=== PATIENT | male | born 1940 | race Caucasian/White ===

== ENCOUNTER 2019-06-26 14:05 | Inpatient (IN) ==
[2019-06-26 14:50] LABS: BASO# 0.01 X1000 (0.0-0.2); BASO% 0.1 % (0.0-0.8); HEMATOCRIT 54.3 % (42.0-52.0); HEMOGLOBIN 17.8 g/dL (14.0-18.0); IMM GRAN# 0.02 X1000 (0.0-0.04); IMM GRAN% 0.2 % (0.0-0.5); LYMPH# 1.13 X1000 (1.2-3.4); LYMPH% 10.3 % (20.5-51.1); MCH 29.3 PG (27-31); MCHC 32.8 g/dL (33-37); MCV 89.5 FL (81-99); MONO# 0.71 X1000 (0.11-0.59); MONO% 6.5 % (1.7-9.3); MPV 10.5 FL (7.4-10.4); NEUT# 9.05 X1000 (1.4-6.5); NEUT% 82.9 % (42.2-75.2); PLT 149 X1000 (130-400); RBC 6.07 XMIL (4.7-6.1); WBC 10.92 X1000 (4.8-10.8)
--- NOTE | 2019-06-26 14:55 | Diag Imaging Result Doc PS360 ---
EXAM: CHEST-1 VIEW - 06/26/2019 HISTORY: dyspnea, hypoxia TECHNIQUE: Portable chest one view COMPARISON: None. FINDINGS: Heart size appears upper normal. There are ill-defined lower lung infiltrates and/or scarring. There is no substantial pleural effusion or pneumothorax identified. IMPRESSION: Ill-defined lower lung infiltrates and/or scarring. Electronically signed by Norman Ann 06/26/2019 2:53 PM
[2019-06-26 15:02] LABS: INR 1.05; PROTIME 13.8 Seconds (11.0-16.0)
[2019-06-26 15:03] LABS: PTT 34.3 Seconds (22.3-41.8)
[2019-06-26 15:18] LABS: ALB/GLOB RATIO 1.2; ALBUMIN 3.8 g/dL (3.5-5.0); CALCIUM 9.2 mg/dL (8.8-10.2); CREATININE 1.8 mg/dL (0.7-1.2); MAGNESIUM 2.1 mg/dL (1.5-2.7); POTASSIUM 5.1 mmol/L (3.5-5.1); TOTAL BILIRUBIN 0.61 mg/dL (0.20-1.00); TOTAL PROTEIN 6.9 g/dL (6.3-8.3)
[2019-06-26] MEDS ORDERED: LEVAQUIN PO ONE (15:24)
[2019-06-26] MEDS ORDERED: ASPIRIN PO ONE ×2 (15:30→15:55)
[2019-06-26 16:08] LABS: ALLEN TEST YES; BE -5.6 mmoll (-3.0-3.0); BLOOD TYPE ARTERIAL; HCO3-(ACT) 20.4 mmoll (20.0-26.0); MODALITY CANNULA; O2(CT) 23.3 mL/dL (15.0-23.0); O2HB 92.2 % (95.0-99.0); PCO2(98.6) 33 mmHg (35-45); PO2(98.6) 60 mmHg (60-100); SAMPLE BLOOD; SAO2 94.8 % (95.0-100.0); pH(98.6) 7.36 (7.35-7.45)
[2019-06-26] MEDS ORDERED: HEPARIN IV ONE (16:24)
[2019-06-26 16:41] LABS: URINE SOURCE CLEAN CATCH
--- NOTE | 2019-06-26 16:43 | CARDIOLOGY CONSULTATION ---
DATE: 06/26/2019 CHIEF COMPLAINT: Chest pain, shortness of breath. HISTORY OF PRESENT ILLNESS: Mr. Lama is a 78-year-old male with a history of hypertension, who presents for evaluation of shortness of breath and chest pain that began yesterday evening around 12:30. It was associated with some chest discomfort that persisted for several hours. He had associated nausea and vomiting as well. He was administered 4 baby aspirin here. He is currently somewhat short of breath but no longer no longer has any pain complaints. PAST MEDICAL HISTORY: Significant for hypertension. SOCIAL HISTORY: He does not smoke. He quit many years ago. He is . His son is present at bedside. FAMILY HISTORY: Significant for hypertension. REVIEW OF SYSTEMS: A 10 system review of systems is negative except for those mentioned in HPI. PHYSICAL EXAMINATION: Temperature not taken. Pulse rate 116, respiratory rate 31, blood pressure 108/86.General: He is in no acute distress. HEENT: Oropharynx is moist. Poor dentition. [place] conjunctivae. White sclerae. Neck: Shows no obvious thyromegaly or thyroid tenderness. Cardiovascular: He sounds to be in a regular rate and rhythm. He has no murmurs. He has no S3. He has no lower extremity edema. Chest: Bilateral basilar rales. No increased work of breathing. Abdomen: Soft, nontender, nondistended. He has no obvious organomegaly. Skin: Warm and dry throughout without any rashes. Neurological: He is moving all extremities well. He has no lateralizing deficits. PERTINENT DATA: His EKG shows sinus rhythm. He has a nonspecific intraventricular conduction delay that appears to be more left bundle type. His EKG shows ill-defined lower lung infiltrates and/or scarring. His lab data shows a white count of 10.9, hematocrit 54, platelet count 149,000. His sodium is 136, potassium 5.1, BUN 22, creatinine is 1.8. His initial troponin is 347 with a proBNP of 6720, his lactate is 3.7. ASSESSMENT: Mr. Lama is a 78-year-old male who presented with chest pain, shortness of breath. PLAN: He has a new bundle branch block that appears left bundle in pattern. He has an elevated troponin. He had chest pain last night with continued symptoms of shortness of breath. At this point, I would treat this as acute coronary syndrome. I will make an order for heparin 5000 units IV. I would recommend transfer to the nearest PCI facility. I have discussed this with the ER physician. He has already received aspirin. cc: Aleksandar Lama MD
[2019-06-26 16:44] LABS: BILIRUBIN URINE NEGATIVE (NEGATIVE); BLOOD URINE NEGATIVE (NEGATIVE); COLOR YELLOW; GLUCOSE URINE TRACE mg/dL (NEGATIVE); KETONE URINE TRACE mg/dL (NEGATIVE); LEUKOCYTES URINE NEGATIVE (NEGATIVE); NITRITE URINE NEGATIVE (NEGATIVE); PROTEIN URINE 100 mg/dL (NEGATIVE); SP GRAVITY URINE 1.023; TURBIDITY URINE CLEAR (CLEAR); UROBILINOGEN URINE NORMAL (NORMAL)
[2019-06-26 16:45] LABS: UR EPITHELIAL CELLS <10 /HPF (<10); URINE BACTERIA NEGATIVE /HPF; URINE RBC <10 /HPF (<10); URINE WBC <10 /HPF (<10)
[2019-06-26] MEDS ORDERED: HEPARIN 25,000 UNITS/D5W 25,000 UNIT/250 ML IV.SOLN IV SCH (16:45)
--- NOTE | 2019-06-26 17:10 | Diag Imaging Result Doc PS360 ---
EXAM: CT THORAX W/O CONTRAST - 06/26/2019 HISTORY: dyspnea, ? basilar infiltrates TECHNIQUE: CT thorax without contrast. No contrast administered per request the referring provider. COMPARISON: 06/26/2019 chest radiograph FINDINGS: There is apparent bilateral pulmonary fibrosis. There is mild peripheral honeycombing. There is a 2.4 x 1.2 cm nodular opacity at the posterior left lower lobe. The nodule measures up to 124 Hounsfield units which may relate to early calcification. There is a 1.2 x 0.9 cm nodular opacity slightly inferior to the larger opacity. There is a 0.6 cm calcified nodule slightly inferior to the above smaller nodule, compatible granuloma. There is no other dense consolidation, pleural effusion, or pneumothorax identified. There are calcified left hilar mediastinal lymph nodes from old granulomatous disease. There are small calcified gallstones noted in the dependent portion of gallbladder. IMPRESSION: Apparent pulmonary fibrosis. No discrete pneumonia. 2.4 x 1.2 cm nodular opacity at posterior left lower lobe. This may have early calcification and therefore may possibly represent a granuloma. This exam was performed using automated exposure control, adjustment of mA or kV according to patient size, and/or use of iterative reconstruction technique. Electronically signed by Norman Ann 06/26/2019 5:08 PM
--- NOTE | 2019-06-26 17:23 | EKG Report ---
Test Performed on : 06/26/2019 2:18:38 PM Test Reason : this is a '2 hour' f/u order; Blood Pressure : / mmHG Vent. Rate : 116 BPM Atrial Rate : 116 BPM P-R Int : 166 ms QRS Dur : 128 ms QT Int : 354 ms P-R-T Axes : 017 -59 088 degrees QTc Int : 492 ms Sinus tachycardia. Left axis deviation Nonspecific intraventricular block Inferior infarct , age undetermined Cannot rule out Anteroseptal infarct , age undetermined Abnormal ECG No previous ECGs available Unconfirmed Result
--- NOTE | 2019-06-26 17:24 | EKG Report ---
Test Performed on : 06/26/2019 3:45:25 PM Test Reason : abnormal troponin Blood Pressure : / mmHG Vent. Rate : 111 BPM Atrial Rate : 111 BPM P-R Int : 170 ms QRS Dur : 138 ms QT Int : 364 ms P-R-T Axes : 028 -59 087 degrees QTc Int : 495 ms Sinus tachycardia. Left axis deviation Nonspecific intraventricular block Cannot rule out Septal infarct (cited on or before 26-JUN-2019) Possible Lateral infarct (cited on or before 26-JUN-2019) Inferior infarct (cited on or before 26-JUN-2019) Abnormal ECG When compared with ECG of 26-JUN-2019 14:18, (Unconfirmed) Serial changes of Septal infarct present Unconfirmed Result
--- NOTE | 2019-06-26 17:45 | PROVIDER DOCUMENTATION ---
This chart was entered by Cecilio Quan Scribe, acting as scribe for Darryl Cueva MD. HPI-General Adult - General Source: patient, family, EMS - History of Present Illness -Gen Adult Nature of Presenting Problems: 78 yo9m presents to the ed v/a ems w/ c/o SOB. EMS states pt was @ 70 % O2 SAT on Room Air. Son states pt woke up in middle of night w/ N but only vomited small amount of liquid from liquid intake. Son states pt has been N/V for past 12 hrs, but denies any Diarrhea. Son states pt got up to go use the restroom this AM and slipped next to bed but doesn't remember. Son states onset sx started 12 am but " i was up with him @ 3 AM." Son states pt has hx of kidney stones and sees physician for stones, " pt had over 100 or so stones broken up." pt states being on Eliquis(2-3 months), " physician stated i could stop taking it." Son states pt was seen at a ed for blood clots in and was not admitted in February 2019. Son states pt is here visiting and got in town and had normal activity up until last night. Son states pt has hx of elevated Creatinine but unknown if its been elevated recently. Son states pt does give out of air easily after ambulating to bathroom. pt is on B/P medication and has no hx of heart disease. pt states former smoker over 10 yrs w/ mild use occ. Location of Pain/Injury: reports: none Pain Radiation: reports: no radiation Quality of Pain: reports: none Severity: reports: mild Onset/Duration: reports: last night Timing: reports: still present Context/Activities at Onset: reports: none Modifying Factors: improves with: nothing Associated Symptoms: reports: nausea, shortness of breath. denies: chest pain, diarrhea, fever/chills Similar Symptoms Previously?: No Recently seen or treated by another doctor?: No <Darryl Cueva - Last Filed: 06/26/19 18:58> <Bennett Royal - Last Filed: 06/26/19 22:11> - General Stated Complaint: SOB Time Seen by Provider: 06/26/19 14:08 Allergies/Adverse Reactions: Patient Allergies Allergy/AdvReac Type Severity Reaction Status Date / Time meperidine [From Demerol] AdvReac NAUSEA/VOMI Verified 06/26/19 15:53 TING Home Medications: Home Medication List Medication Instructions Recorded Confirmed Last Taken Type Amlodipine Besylate 5 mg PO QAM 06/26/19 06/26/19 Unknown History Benzonatate 200 mg PO Q8H PRN PRN 06/26/19 06/26/19 Unknown History Finasteride [Proscar] 5 mg PO DAILY 06/26/19 06/26/19 Unknown History Fluconazole 100 mg PO DAILY 06/26/19 06/26/19 Unknown History Meloxicam 7.5 mg PO DAILY PRN PRN 06/26/19 06/26/19 Unknown History Omeprazole 40 mg PO DAILY 06/26/19 06/26/19 Unknown History Tramadol HCl 50 mg PO PRN PRN 06/26/19 06/26/19 Unknown History Trazodone [Desyrel] 50 mg PO QHS 06/26/19 06/26/19 Unknown History Review of Systems - Adult - REVIEW OF SYSTEMS - ADULT Constitutional: reports: no symptoms reported Eyes: reports: no symptoms reported Ears, Nose, Mouth & Throat: reports: no symptoms reported Cardiovascular: reports: no symptoms reported Respiratory: reports: see HPI, shortness of breath. denies: cough, wheezing Gastrointestinal: reports: see HPI, nausea. denies: constipation, diarrhea Genitourinary: reports: no symptoms reported Musculoskeletal: reports: no symptoms reported Integumentary: reports: no symptoms reported Neurological: reports: no symptoms reported Psychiatric: reports: no symptoms reported Endocrine: reports: no symptoms reported Hematologic/Lymphatic: reports: no symptoms reported Allergic/Immunologic: reports: no symptoms reported All Other Systems: Reviewed and Negative <Darryl Cueva - Last Filed: 06/26/19 18:58> Past History - Adult - PAST MEDICAL HISTORY-ADULT Review of Records: reports: Old Records Reviewed, Nursing Assessment Review, Medications Reviewed, Social history reviewed & non-contributory. Major Childhood Illnesses: reports: denies history Cardiovascular: reports: denies history Respiratory: reports: denies history Gastrointestinal: reports: denies history Obstetrical/Gynecological: reports: denies history Genitourinary: reports: denies history Musculoskeletal: reports: denies history Neurological: reports: denies history Endocrine/Immune: reports: denies history Other Conditions: reports: denies history - PRIOR SURGERIES/PROCEDURES Surgical/Procedure History: reports: reviewed, not pertinent - IMMUNIZATION STATUS Childhood Immunizations: See Nurse Assessment Flu Vaccine: See Nurse Assessment - FAMILY HISTORY Family History: reviewed, not pertinent - SOCIAL HISTORY Smoking: quit greater than 1 year (10 yrs) <Darryl Cueva - Last Filed: 06/26/19 18:58> Physical Exam-General - PHYSICAL EXAM-ADULT Initial Vital Signs Reviewed: Yes - CONSTITUTIONAL General Appearance: appears well, alert, mild distress - RESPIRATORY Respiratory: lungs clear, normal breath sounds - CARDIOVASCULAR Cardiovascular: regular rate, rhythm, tachycardia (116) - GENITOURINARY Male Genitalia: deferred Rectal Exam: deferred Hemoccult Exam: deferred - MUSCULOSKELETAL Extremity: other (RLE edema) - SKIN Integumentary: normal color - PSYCHIATRIC Psych/Mental Status: normal mood/affect, normal thought content, normal thought process, oriented x 3 <Darryl Cueva - Last Filed: 06/26/19 18:58> Progress - PLAN OF CARE/RESULTS Result Diagrams: 06/26/19 14:35 06/26/19 14:35 - REASSESSMENT Reassessment #1 Time Reassessed: 15:32 Status: other (Dr. Cueva spoke w. family and pt about elevated troponin ( 347, w/ concomitant creat 1.8) pt denies CP. Son states this AM pt had N, son states poss had chest discomfort but mostly SOB: will discuss w/ Dr. Lama ([employer] director of consumer affairs)) Reassessment #2 Time Reassessed: 16:14 Status: other (Dr. Lama in room now , spoke w/ Dr. Cueva stated pt should be transfered to [facility]) Reassessment #3 Time Reassessed: 17:34 Status: other (lab called trap #2 ( [id number])) - EKG 1 Time of EKG reading by physician:: 14:18 (cannot rule out anteroseptal infract, age undetermind ) EKG Read and Signed by:: Darryl Cueva EKG Interpretation (*Must complete 3 of following elements*): Abnormal Rate: 116 Rhythm: sinus tachycardia Chappell: left (Lt axis deviation) QRS: normal MT Interval: normal ST Wave: normal Comments: nonspecific intraventricular block/inferior infract age,undetermind 2 Time of EKG reading by physician:: 15:45 (possible lateral infract,age undeter mind/ inferior infract, age undetermind) EKG Read and Signed by:: Darryl Cuvea EKG Interpretation (*Must complete 3 of following elements*): Abnormal Rate: 111 Rhythm: sinus tachycardia Chappell: left (Lt axis deviation) QRS: normal MT Interval: normal ST Wave: normal Prior EKG Comparison: unchanged from prior Comments: nonspecific intraventricular block/cannot rule out septal infract,age undet - XRAY 1 XRAY Study: Chest Impression: See EMR Report (EXAM: CHEST-1 VIEW - 06/26/2019 HISTORY: dyspnea, hypoxia TECHNIQUE: Portable chest one view COMPARISON: None. FINDINGS: Heart size appears upper normal. There are ill-defined lower lung infiltrates and/or scarring. There is no substantial pleural effusion or pneumothorax identified. IMPRESSION: Ill-defined lower lung infiltrates and/or scarring. Electronically signed by Norman Ann 06/26/2019 2:53 PM 06/26/19 1455 Interpreting Physician: Norman Ann MD Dictated Date/Time: 06/26/19 1451 cc: Darryl Cueva MD; None,PCP) - CT/MRI 1 CT Study: other (chest) Impression: See EMR Report (XAM: CT THORAX W/O CONTRAST - 06/26/2019 HISTORY: dyspnea, ? basilar infiltrates TECHNIQUE: CT thorax without contrast. No contrast administered per request the referring provider. COMPARISON: 04/2019 chest radiograph FINDINGS: There is apparent bilateral pulmonary fibrosis. There is mild peripheral honeycombing. There is a 2.4 x 1.2 cm nodular opacity at the posterior left lower lobe. The nodule measures up to 124 Hounsfield units which may relate to early calcification. There is a 1.2 x 0.9 cm nodular opacity slightly inferior to the larger opacity. There is a 0.6 cm calcified nodule slightly inferior to the above smaller nodule, compatible granuloma. There is no other dense consolidation, pleural effusion, or pneumothorax identified. There are calcified left hilar mediastinal lymph nodes from old granulomatous disease. There are small calcified gallstones noted in the dependent portion of gallbladder. IMPRESSION: Apparent pulmonary fibrosis. No discrete pneumonia. 2.4 x 1.2 cm nodular opacity at posterior left lower lobe. This may have early calcification and therefore may possibly represent a granuloma. This exam was performed using automated exposure control, adjustment of mA or kV according to patient size, and/or use of iterative reconstruction technique. Electronically signed by Norman Ann 06/26/2019 5:08 PM 06/26/19 1708 Interpreting Physician: Norman Ann MD Dictated Date/Time: 06/26/19 0193 cc: Darryl Cueva MD; None,PCP) - CONSULTS/PCP/HOSPITALIST Notification #1 *Consult/PCP/Hospitalist*: Dr. Cueva consult w/ Time Discussed: 15:45 #2 Consult: Dr. Cueva consult w/ Transfer Center Nurse Time Discussed: 16:17 #3 Consult: Dr. Cueva consult w/ HH SUPERVISOR SUNGLASSES Time Discussed: 16:26 (SUPERVISOR SUNGLASSES states start Heparin Bolus Drip and wants see reaults from V Q Scan ) Consult Disposition: Admit ( accepted) - CHANGE OF SHIFT REPORT (ED Provider) 1 Report Given and Care Transferred to:: Dr. Royal Time of Transfer: 19:00 Items Pending: XRAY Results <Darryl Cueva - Last Filed: 06/26/19 18:58> - PLAN OF CARE/RESULTS Progress/Plan/Lab Results: Vital Signs - 8 hr 06/26/19 14:10 06/26/19 15:00 06/26/19 16:00 Pulse Rate 116 H 108 H 114 H Respiratory Rate 31 H 24 22 Blood Pressure 108/86 93/81 104/78 O2 Sat by Pulse Oximetry 95 97 97 06/26/19 17:15 06/26/19 18:00 Pulse Rate 108 H 110 H Respiratory Rate 28 H 23 Blood Pressure 89/75 104/68 O2 Sat by Pulse Oximetry 94 L 97 06/26/19 15:31 Influenza Screen - Final Nasopharyngeal Laboratory Results - last 24 hr 06/26/19 06/26/19 06/26/19 14:27 14:35 14:35 WBC RBC Hgb Hct MCV MCH MCHC RDW Std Deviation Plt Count MPV Immature Gran % (Auto) Neut % (Auto) Lymph % (Auto) Hart % (Auto) Eos % (Auto) Baso % (Auto) Immature Gran # (Auto) Neut # (Auto) Lymph # (Auto) Hart # (Auto) Eos # (Auto) Baso # (Auto) PT INR PTT (Actin FS) Specimen Type Sample Site pH pCO2 pO2 HCO3 Base Excess Oxyhemoglobin ABG O2 Sat (Calculated) ABG O2 Saturation ABG Carboxyhemoglobin ABG Methemoglobin Bryson Test A-a O2 Difference Total Hemoglobin Lactate Blood Gas Modality FiO2 % Sodium 136 Potassium 5.1 Chloride 100 Carbon Dioxide 19 L Anion Gap 17 BUN 22 Creatinine 1.8 H Estimated GFR/1.73 m2 37 BUN/Creatinine Ratio 12 Glucose 169 H Calculated Osmolality 279 Calcium 9.2 Magnesium 2.1 Total Bilirubin 0.61 AST 21 ALT 14 Alkaline Phosphatase 78 Creatine Kinase 82 Troponin T High Sens 322 H* [id number]-M-Pmqodosmjds Pept 6720 H Total Protein 6.9 Albumin 3.8 Globulin 3.1 Albumin/Globulin Ratio 1.2 Plasma Lactate Urine Source Urine Color Urine Turbidity Urine pH Ur Specific [place] Urine Protein Ur Glucose (Stick) Ur Ketones (Stick) Urine Blood Urine Nitrite Urine Bilirubin Urobilinogen Dipstick Urine Leukocytes Urine WBC (Auto) Urine RBC (Auto) U Epithel Cells (Auto) Urine Bacteria (Auto) 06/26/19 06/26/19 06/26/19 14:35 14:35 14:35 WBC 10.92 H RBC 6.07 Hgb 17.8 Hct 54.3 H MCV 89.5 MCH 29.3 MCHC 32.8 L RDW Std Deviation 14.0 Plt Count 149 MPV 10.5 H Immature Gran % (Auto) 0.2 Neut % (Auto) 82.9 H Lymph % (Auto) 10.3 L Hart % (Auto) 6.5 Eos % (Auto) 0.0 Baso % (Auto) 0.1 Immature Gran # (Auto) 0.02 Neut # (Auto) 9.05 H Lymph # (Auto) 1.13 L Hart # (Auto) 0.71 H Eos # (Auto) 0.00 Baso # (Auto) 0.01 PT INR PTT (Actin FS) Specimen Type Sample Site pH pCO2 pO2 HCO3 Base Excess Oxyhemoglobin ABG O2 Sat (Calculated) ABG O2 Saturation ABG Carboxyhemoglobin ABG Methemoglobin Bryson Test A-a O2 Difference Total Hemoglobin Lactate Blood Gas Modality FiO2 % Sodium Potassium Chloride Carbon Dioxide Anion Gap BUN Creatinine Estimated GFR/1.73 m2 BUN/Creatinine Ratio Glucose Calculated Osmolality Calcium Magnesium Total Bilirubin AST ALT Alkaline Phosphatase Creatine Kinase Troponin T High Sens 347 H* [id number]-R-Ssbitncuyfc Pept Total Protein Albumin Globulin Albumin/Globulin Ratio Plasma Lactate 3.7 H Urine Source Urine Color Urine Turbidity Urine pH Ur Specific [place] Urine Protein Ur Glucose (Stick) Ur Ketones (Stick) Urine Blood Urine Nitrite Urine Bilirubin Urobilinogen Dipstick Urine Leukocytes Urine WBC (Auto) Urine RBC (Auto) U Epithel Cells (Auto) Urine Bacteria (Auto) 06/26/19 06/26/19 06/26/19 14:35 16:00 16:22 WBC RBC Hgb Hct MCV MCH MCHC RDW Std Deviation Plt Count MPV Immature Gran % (Auto) Neut % (Auto) Lymph % (Auto) Hart % (Auto) Eos % (Auto) Baso % (Auto) Immature Gran # (Auto) Neut # (Auto) Lymph # (Auto) Hart # (Auto) Eos # (Auto) Baso # (Auto) PT 13.8 INR 1.05 PTT (Actin FS) 34.3 Specimen Type ARTERIAL Sample Site L RADIAL pH 7.36 pCO2 33 L pO2 60 HCO3 20.4 Base Excess -5.6 L Oxyhemoglobin 92.2 L ABG O2 Sat (Calculated) 23.3 H ABG O2 Saturation 94.8 L ABG Carboxyhemoglobin 1.70 ABG Methemoglobin 1.0 Bryson Test YES A-a O2 Difference 98.0 Total Hemoglobin 18.0 H Lactate 2.60 H Blood Gas Modality CANNULA FiO2 % 28.0 Sodium Potassium Chloride Carbon Dioxide Anion Gap BUN Creatinine Estimated GFR/1.73 m2 BUN/Creatinine Ratio Glucose Calculated Osmolality Calcium Magnesium Total Bilirubin AST ALT Alkaline Phosphatase Creatine Kinase Troponin T High Sens [id number]-Nsmlauiicmb Pept Total Protein Albumin Globulin Albumin/Globulin Ratio Plasma Lactate Urine Source CLEAN CATCH Urine Color YELLOW Urine Turbidity CLEAR Urine pH 6.0 Ur Specific [place] 1.023 Urine Protein 100 A Ur Glucose (Stick) TRACE Ur Ketones (Stick) TRACE A Urine Blood NEGATIVE Urine Nitrite NEGATIVE Urine Bilirubin NEGATIVE Urobilinogen Dipstick NORMAL Urine Leukocytes NEGATIVE Urine WBC (Auto) <10 Urine RBC (Auto) <10 U Epithel Cells (Auto) <10 Urine Bacteria (Auto) NEGATIVE 06/26/19 18:45 WBC RBC Hgb Hct MCV MCH MCHC RDW Std Deviation Plt Count MPV Immature Gran % (Auto) Neut % (Auto) Lymph % (Auto) Hart % (Auto) Eos % (Auto) Baso % (Auto) Immature Gran # (Auto) Neut # (Auto) Lymph # (Auto) Hart # (Auto) Eos # (Auto) Baso # (Auto) PT INR PTT (Actin FS) Specimen Type Sample Site pH pCO2 pO2 HCO3 Base Excess Oxyhemoglobin ABG O2 Sat (Calculated) ABG O2 Saturation ABG Carboxyhemoglobin ABG Methemoglobin Bryson Test A-a O2 Difference Total Hemoglobin Lactate Blood Gas Modality FiO2 % Sodium Potassium Chloride Carbon Dioxide Anion Gap BUN Creatinine Estimated GFR/1.73 m2 BUN/Creatinine Ratio Glucose Calculated Osmolality Calcium Magnesium Total Bilirubin AST ALT Alkaline Phosphatase Creatine Kinase Troponin T High Sens Zry-Y-Nktkpidburf Pept Total Protein Albumin Globulin Albumin/Globulin Ratio Plasma Lactate 2.7 H Urine Source Urine Color Urine Turbidity Urine pH Ur Specific [place] Urine Protein Ur Glucose (Stick) Ur Ketones (Stick) Urine Blood Urine Nitrite Urine Bilirubin Urobilinogen Dipstick Urine Leukocytes Urine WBC (Auto) Urine RBC (Auto) U Epithel Cells (Auto) Urine Bacteria (Auto) Orders Category Date Time Status Cardiac Monitoring NOW Care 06/26/19 14:44 Active IV Insertion NOW Care 06/26/19 14:44 Completed Notify Provider of NEWS Score NOW Care 06/26/19 14:44 Active CHEST-1 VIEW [RAD] Stat Exams 06/26/19 14:29 Completed Chest [CT THORAX W/O CONTRAST] [CT] Stat Exams 06/26/19 15:25 Completed LUNG SCAN / VQ [NM] Stat Exams 06/26/19 15:23 Completed ABG [RESP] Routine Lab 06/26/19 16:00 Completed BLOOD CULTURE [BLDCUL] Stat Lab 06/26/19 15:31 Results CBC WITH DIFF [HEME] Stat Lab 06/26/19 14:35 Completed CK PROFILE [SP CHEM] Stat Lab 06/26/19 14:35 Completed COMPREHENSIVE METABOLIC PANEL [CHEM] Stat Lab 06/26/19 14:35 Completed INFLUENZA SCREEN A/B Stat Lab 06/26/19 15:31 Completed LACTATE, PLASMA [CHEM] Lab 06/26/19 18:45 Completed LACTATE, PLASMA [CHEM] Lab 06/26/19 20:45 Uncollected LACTATE, PLASMA [CHEM] Q3H Lab 06/26/19 14:35 Completed MAGNESIUM [CHEM] Stat Lab 06/26/19 14:35 Completed PRO B-NATRIURETIC PEPTIDE Stat Lab 06/26/19 14:35 Completed PROTIME WITH INR [COAG] Stat Lab 06/26/19 14:35 Completed PTT [COAG] Stat Lab 06/26/19 14:35 Completed TROPONIN T HIGH SENSITIVITY Stat Lab 06/26/19 14:27 Completed TROPONIN T HIGH SENSITIVITY Stat Lab 06/26/19 14:35 Completed URINALYSIS W/POSS RFLX CULT [URINALYSIS] Stat Lab 06/26/19 16:22 Completed 0.9% Sodium Chloride Inj [Ns] 1,000 ml Med 06/26/19 18:30 Active IV 75 mls/hr 0.9% Sodium Chloride Inj [Ns] 500 ml Med 06/26/19 19:00 Discontinued IV 999 mls/hr Aspirin Med 06/26/19 15:30 Discontinued 214 mg PO NOW ONE Aspirin Med 06/26/19 15:55 Discontinued 324 mg PO NOW ONE Heparin Med 06/26/19 16:24 Discontinued 5,000 unit IV NOW ONE Heparin 25,000 Units/D5w Med 06/26/19 16:45 Active 25,000 unit in 250 ml IV 12 unit/kg/hr Levofloxacin [Levaquin] Med 06/26/19 15:24 Discontinued 750 mg PO NOW ONE O2 Per Protocol Stat Oth 06/26/19 14:44 Completed EKG [EKG] Stat Ther 06/26/19 14:30 Draft EKG [EKG] Stat Ther 06/26/19 15:43 Draft Results of VQ scan discussed with transfer center and Barby LUCAS for [employer] who noted that pt was cleared from cardiology standpoint and should be medically managed here for PE and renal insufficiency. Pt was discussed with Dr Desai who agreed to admit. Result Diagrams: 06/26/19 14:35 06/26/19 14:35 <Bennett Royal - Last Filed: 06/26/19 22:11> Departure - Departure Date of Disposition Decision: 06/26/19 Certified Medical Emergency: Emergent - Critical Care Note This patient required my direct & personal management of CC.: No <Darryl Cueva - Last Filed: 06/26/19 18:58> - Departure Time of Disposition Decision: 22:07 Certified Medical Emergency: Emergent - Critical Care Note This patient required my direct & personal management of CC.: Yes Total Time (mins): 60 Critical Care Statement: This patient required my direct personal management to treat or rule out processes, the absence of which, could potentiallly result in sudden, clinically significant life or limb threatening deterioration. <Bennett Royal - Last Filed: 06/26/19 22:11> - Departure DIAGNOSIS: Elevated troponin, Pulmonary embolism, Noncompliance with medication regimen, Renal insufficiency, CHF (congestive heart failure) Disposition: ADMITTED INPATIENT 09 Condition: Fair Referrals and Follow-Ups: None,PCP [Primary Care Provider] - Attestation - Physician/ DEANN Attestation Patient care was provided by Advanced Practice Provider:: No The physician spent face to face time with patient:: Yes Advanced Practice Provider documentation review:: Supervising physician onsite and consulted in the evaluation and care of this patient. The physician did have a face to face encounter with the patient. <Darryl Cueva - Last Filed: 06/26/19 18:58> This chart was documented by the indicated scribe, (Cecilio Quan Scribe) and accurately reflects the services I performed and decisions made by me, Darryl Cueva MD, as attested by the provider's signature.
[2019-06-26] MEDS ORDERED: NS 500 ML IV SCH ×2 (18:00→19:00)
[2019-06-26] MEDS ORDERED: NS 1,000 ML IV SCH (18:30)
--- NOTE | 2019-06-26 20:42 | Diag Imaging Result Doc PS360 ---
EXAM: LUNG SCAN / VQ - 06/26/2019 HISTORY: hypoxemia/dyspnea off Eliquis, known DVT TECHNIQUE: Lung ventilation/perfusion scan. Ventilation images performed using 30.2 mCi technetium 99m DTPA aerosol detail. Perfusion images performed using 5.4 mCi technetium 99m MAA administered intravenously. Ventilation perfusion images are obtained in multiple projections over the lungs COMPARISON: Exam is correlated with the 06/26/2019 CT thorax FINDINGS: There are multiple bilateral ventilation/perfusion mismatches. IMPRESSION: High probability for pulmonary embolism. Electronically signed by Norman Ann 06/26/2019 8:39 PM
[2019-06-26] MEDS ORDERED: ZOFRAN IV ONE (22:12)
[2019-06-26] MEDS ORDERED: ULTRAM PO PRN (23:26)
[2019-06-26] MEDS ORDERED: TESSALON PO PRN (23:31)
[2019-06-27] MEDS ORDERED: NITROGLYCERIN SL PRN (01:43)
[2019-06-27] MEDS ORDERED: TYLENOL PO PRN (01:43)
[2019-06-27] MEDS ORDERED: ZOFRAN IV PRN (01:43)
[2019-06-27] MEDS ORDERED: MORPHINE IV PRN (01:43)
[2019-06-27] MEDS ORDERED: NS 1,000 ML IV SCH (01:43)
[2019-06-27 04:03] LABS: BASO# 0.02 X1000 (0.0-0.2); BASO% 0.2 % (0.0-0.8); EOS# 0.03 X1000 (0.0-0.7); EOS% 0.3 % (0.0-10.0); HEMATOCRIT 47.1 % (42.0-52.0); HEMOGLOBIN 15.9 g/dL (14.0-18.0); LYMPH# 1.77 X1000 (1.2-3.4); LYMPH% 18.2 % (20.5-51.1); MCH 30.7 PG (27-31); MCHC 33.8 g/dL (33-37); MCV 90.9 FL (81-99); MONO# 0.89 X1000 (0.11-0.59); MONO% 9.2 % (1.7-9.3); MPV 10.3 FL (7.4-10.4); NEUT# 6.99 X1000 (1.4-6.5); NEUT% 72.1 % (42.2-75.2); PLT 125 X1000 (130-400); RBC 5.18 XMIL (4.7-6.1)
[2019-06-27 04:08] LABS: HEMOGLOBIN A1C 5.2 % (4.8-6.0)
--- NOTE | 2019-06-27 04:27 | HISTORY AND PHYSICAL ---
CHIEF COMPLAINT: Shortness of breath. HISTORY OF PRESENT ILLNESS: This is a 78-year-old male who comes into the emergency room after having shortness of breath. EMS stated that his oxygen was in the 70s. Apparently woke up in the middle of the night, had a small amount of vomiting. He has had nausea and vomiting for the past 12 hours. No diarrhea. He got up this morning and kind of slipped next to the bed. He has a history of kidney stones. He was apparently on Eliquis 2-3 months and then the physician said he could stop taking it. I am unsure on this. Son states that the patient was seen at the ER for blood clots in February of 2019. He is here visiting from out of town. Has hypertension and no history of heart disease. Otherwise, this was really all the medical history that the patient had noted. His respirations were elevated. He was tachypneic and a V/Q scan was done related to his elevated creatinine which showed high probability of a pulmonary embolism. He was started on a heparin drip and will be kept here in ICU. Originally, I believe the plan was to move him to [facility] because of elevated troponins. However, when [facility] was contacted they felt he could be kept here as this was all related to pulmonary embolism so he will be admitted to ICU for further evaluation and treatment. PAST MEDICAL HISTORY: See HPI. SOCIAL HISTORY: Here visiting out of town, staying with his son. He was a pack per day smoker but quit 10 years ago. No alcohol. No illicit drugs. FAMILY HISTORY: Denies history of coronary artery disease. ALLERGIES: Meperidine. HOME MEDICATIONS: Meloxicam 7.5 mg p.o. daily, amlodipine 5 mg p.o. daily, benzonatate 200 mg daily, finasteride 5 mg p.o. daily, fluconazole 100 mg p.o. daily, omeprazole 40 mg p.o. daily, tramadol 50 mg p.o. p.r.n., trazodone 50 mg p.o. at bedtime. REVIEW OF SYSTEMS: Fourteen-point review of systems conducted with the patient. Pertinent positives listed above in the HPI. All other systems reviewed and negative. PHYSICAL EXAMINATION: VITAL SIGNS: Temperature 98.1, pulse 98, respiration 31, blood pressure 99/70, oxygen saturation 96% on 2 L nasal cannula. GENERAL: A 78-year-old male lying in the ER stretcher, is tachypneic, short of breath. Answers most questions in 2-word sentences. He is in moderate distress. HEENT: Head is atraumatic, normocephalic. Pupils equal, round, reactive to light. Extraocular eye movement is intact. Sclera is anicteric. Conjunctiva is pink. Oral mucosa is moist. NECK: Supple. No JVD. No thyromegaly. Trachea is midline. No cervical lymphadenopathy. CARDIAC: S1, S2 appreciated. He is tachycardic. No murmurs, gallops, rubs. LUNGS: Crepitations noted bilaterally. He is tachypneic. No rhonchi. No wheezes. Symmetric rise and fall with respirations. ABDOMEN: Soft, nondistended, nontender. Bowel sounds present all 4 quadrants, normoactive. No pulsatile mas. No organomegaly. EXTREMITIES: Right lower extremity edema noted, mild warmth around the calf area. NEUROLOGICAL: Alert and oriented times 3. No focal motor deficits. Nonfocal examination. DIAGNOSTIC DATA: EKG showed sinus tachycardia with left axis deviation. V/Q scan shows high probability of a PE. CT of the chest: Apparent pulmonary fibrosis, no discrete pneumonia. LABORATORY DATA: WBC 10.92. Hemoglobin 17.8. Hematocrit 54.3. Platelet count 149. ABG: pH 7.36, pCO2 of 33, PO2 of 60, bicarbonate 20.4. Sodium 136. Potassium 5.1. Chloride 100. Carbon dioxide 19. BUN 22. Creatinine 1.8. Glucose 169. Troponin 322. ProBNP 6720. Urine unremarkable. ASSESSMENT: 1. Pulmonary embolism. 2. Troponinemia. 3. Hypertension. 4. Gastroesophageal reflux disease. PLAN: Admit patient to ICU with heparin drip. Continue to trend cardiac enzymes. Believe Dr. Lama had previously been consulted by the emergency room. Monitor his PTT with protocol. He was mildly hyperglycemic. Check a hemoglobin A1c. Further recommendation per patient clinical course. Dictated by MAYE Guerrier for Robin Desai MD I have performed a face to face diagnostic evaluation. Labs/ xrays- reviewed. Exam- Chest- clear, CV-regular. A/P- PTE- Admit, NPO, heparin drip. Dr. Desai. cc: MAYE Guerrier MD [facility]
[2019-06-27 04:42] LABS: CALCIUM 8.7 mg/dL (8.8-10.2); CREATININE 1.8 mg/dL (0.7-1.2); POTASSIUM 4.8 mmol/L (3.5-5.1)
[2019-06-27] MEDS ORDERED: PRILOSEC PO SCH (07:00)
--- NOTE | 2019-06-27 07:34 | EKG Report ---
Test Performed on : 06/27/2019 07:07:09 AM Test Reason : chest pain Blood Pressure : / mmHG Vent. Rate : 095 BPM Atrial Rate : 095 BPM P-R Int : 188 ms QRS Dur : 134 ms QT Int : 386 ms P-R-T Axes : 040 -42 105 degrees QTc Int : 485 ms Normal sinus rhythm. Left axis deviation Nonspecific intraventricular block Inferior infarct (cited on or before 26-JUN-2019) Cannot rule out Anteroseptal infarct (cited on or before 26-JUN-2019) T wave abnormality, consider lateral ischemia Abnormal ECG When compared with ECG of 26-JUN-2019 15:45, (Unconfirmed) No significant change was found Confirmed by Dusty Snyder MD ([id number]) on 06/28/2019 9:54:23 PM
[2019-06-27] MEDS ORDERED: DIFLUCAN PO SCH (09:00)
[2019-06-27] MEDS ORDERED: PROSCAR PO SCH (09:00)
[2019-06-27] MEDS ORDERED: NORVASC PO SCH (09:00)
[2019-06-27] MEDS ORDERED: DOPAMINE 800 MG/D5W 800 MG/500 ML IV.SOLN IV SCH (11:00)
[2019-06-27] MEDS ORDERED: DOPAMINE 800 MG/D5W 800 MG/500 ML IV.SOLN ONE (11:01)
[2019-06-27] MEDS ORDERED: HEPARIN 1000 UNITS/NS 1,000 UNIT/500 ML IV.SOLN ONE (11:14)
--- NOTE | 2019-06-27 12:03 | EKG Report ---
Test Performed on : 06/27/2019 10:42:21 AM Test Reason : BRADYCARDIA Blood Pressure : / mmHG Vent. Rate : 026 BPM Atrial Rate : 026 BPM P-R Int : 000 ms QRS Dur : 134 ms QT Int : 552 ms P-R-T Axes : 053 073 -39 degrees QTc Int : 362 ms Third degree AV block Right bundle branch block T wave abnormality, consider inferior ischemia Clinical Correlation is strongly advised! Abnormal ECG When compared with ECG of 27-JUN-2019 07:07, (Unconfirmed) Third degree AV block has replaced normal sinus rhythm. Right bundle branch block has replaced Nonspecific intraventricular block Minimal criteria for Anteroseptal infarct are no longer present Criteria for Inferior infarct are no longer present Confirmed by Dusty Snyder MD ([id number]) on 06/29/2019 6:00:57 PM
--- NOTE | 2019-06-27 12:16 | CARDIAC CATH REPORT ---
PROCEDURE NAME: - INDICATION FOR THE PROCEDURE: Complete heart block. PROCEDURES PERFORMED: Temporary transvenous pacemaker from a femoral approach. PROCEDURE DETAIL: Mr. Lama was brought to the catheterization laboratory in a fasting state. Emergency consent was obtained. Prepped in the usual fashion. He was anesthetized over the right femoral vein. A 6-Samo[place] sheath was placed in the right femoral vein. A transvenous pacemaker was floated into the right ventricle. Capture was obtained at a rate of 80 at 3 milliamperes. The patient tolerated the procedure well. There was 5-10 mL of blood loss. No apparent complications. IMPRESSION: Mr. Lama is a 78-year-old gentleman who presented with chest pain and shortness of breath. He was found to have a pulmonary embolus and developed complete heart block this morning. PLAN: We will continue with temporary transvenous pacing for the time-being. He is pending transfer over to [facility] for consideration of permanent device implantation. He is currently on dopamine to support a systolic blood pressure above 100. cc: Aleksandar Lama MD
[2019-06-27 14:51] LABS: URINE SOURCE CATH
[2019-06-27 14:59] LABS: BILIRUBIN URINE SMALL (NEGATIVE); BLOOD URINE NEGATIVE (NEGATIVE); COLOR YELLOW; GLUCOSE URINE NEGATIVE (NEGATIVE); KETONE URINE TRACE mg/dL (NEGATIVE); LEUKOCYTES URINE NEGATIVE (NEGATIVE); NITRITE URINE NEGATIVE (NEGATIVE); PH URINE 5.5; PROTEIN URINE 30 mg/dL (NEGATIVE); SP GRAVITY URINE 1.029; TURBIDITY URINE CLEAR (CLEAR); UROBILINOGEN URINE 2 mg/dL (NORMAL)
[2019-06-27 15:02] LABS: UR EPITHELIAL CELLS <10 /HPF (<10); URINE BACTERIA NEGATIVE /HPF; URINE RBC <10 /HPF (<10); URINE WBC <10 /HPF (<10)
[2019-06-27] MEDS: HEPARIN 25,000 UNITS/D5W 25,000 UNIT/250 ML IV.SOLN IV SCH ×2 (15:03→18:05)
[2019-06-27] MEDS ORDERED: ATROPINE SYRINGE ONE (16:03)
[2019-06-27 16:11] VITALS: BP 121/85
--- NOTE | 2019-06-27 17:33 | ECHO REPORT ---
ORDER DATE: 06/27/2019 MEASUREMENTS: 1. Septal thickness 1.3. 2. Left ventricular internal diameter in diastole 4.4. 3. Posterior wall thickness 1.2. 4. Left ventricular internal diameter systole 3.4. 5. Aortic root 3.4. 6. Left atrium 2.6. SUMMARY: 1. Technically difficult study due to limited acoustic window quality. Intravenous echo contrast agent Optison was utilized to enhance endocardial definition. 2. Aortic valve is trileaflet and demonstrates mild sclerotic change with normal aortic valve opening evident. Peak gradient across aortic valve is less than 5 mmHg. Mitral, tricuspid and pulmonic valves are without evidence of structural abnormality with trace mitral regurgitation, very mild tricuspid regurgitation, and mild pulmonic insufficiency. Trace mitral regurgitation, mild to moderate tricuspid regurgitation, and mild pulmonic insufficiency. The estimated systolic PA pressure by Doppler is 35 to 40 mmHg suggesting mild pulmonary hypertension. Aortic root is normal size. 3. Normal left chamber size with mild concentric left hypertrophy is demonstrated. Estimated left ejection fraction is approximately 45%. Abnormal septal motion is demonstrated and appears to be predominantly paradoxical septal motion probably related to interventricular conduction abnormality. There was some diastolic septal flattening suggesting right ventricular volume overload possible. Left atrium is normal in size. Right atrium is mildly enlarged. The right ventricle is moderate to severely enlarged with moderate to severely depressed right ventricular systolic function. 4. No pericardial effusion. 5. Tiny posterior pericardial effusion. 6. Inferior vena cava not well demonstrated. CONCLUSIONS: 1. Technically difficult study. 2. Very mild aortic valve sclerosis without stenosis. 3. Mild to moderate tricuspid regurgitation with mild to moderate pulmonary hypertension by Doppler. 4. Mild concentric left hypertrophy with estimated left ventricular ejection fraction around 45% with abnormal septal motion as described. 5. Mild right atrial enlargement. 6. Moderate to severe right ventricular enlargement with moderate to severely depressed right ventricular systolic function. 7. Tiny posterior pericardial effusion. cc: MD Aleksandar Almanza MD
[2019-06-27] MEDS ORDERED: DESYREL PO SCH (21:00)
--- NOTE | 2019-07-01 16:31 | EKG Report ---
Test Performed on : 06/27/2019 3:56:43 PM Test Reason : No order in [place] Blood Pressure : / mmHG Vent. Rate : 092 BPM Atrial Rate : 092 BPM P-R Int : 188 ms QRS Dur : 138 ms QT Int : 386 ms P-R-T Axes : 032 256 013 degrees QTc Int : 477 ms Sinus rhythm. with sinus arrhythmia. with occasional ventricular-paced complexes Nonspecific intraventricular block Inferior infarct , age undetermined Possible Anterolateral infarct , age undetermined Abnormal ECG When compared with ECG of 27-JUN-2019 10:42, Normal sinus rhythm with occasional ventricular-paced complexes has replaced complete heart block. Nonspecific intraventricular block has replaced right bundle branch block. Confirmed by Dusty Snyder MD ([id number]) on 07/02/2019 10:40:47 AM
--- NOTE | 2019-07-01 18:48 | Extremity Venous Study ---
PROCEDURE NAME: Venous U/S Bilateral Legs - 06/27/2019 TREASURY SPECIALIST: Harshil. REQUESTING PROVIDER: MAYE Guerrier INDICATIONS: PE. FINDINGS: The deep and superficial veins of the bilateral lower extremities were visualized along their course. In the right lower extremity there was lack of compressibility consistent with acute DVT in the right distal femoral vein and popliteal vein. On the left there is no evidence of deep venous thrombosis. IMPRESSION: Acute deep venous thrombosis of the right femoral and popliteal vein on the right, with no evidence of thrombus noted on the left. cc: MD Vincenzo Fraire CRNP
--- NOTE | 2019-07-28 13:37 | DISCHARGE SUMMARY ---
ADMISSION DATE: 06/27/2019 DISCHARGE DATE: 06/29/2019 DISCHARGE DIAGNOSES: 1. Pulmonary embolus. 2. Elevated troponin. 3. Hypertension. 4. Third-degree heart block. PROCEDURE: Transvenous pacemaker placement on 06/26. COURSE: Briefly, this is a 78-year-old male who came in with hypoxia. He had been on Eliquis and then stopped taking it for unclear reasons. He came in with tachypnea. V/Q scan showed a high probability of pulmonary embolism. He was placed on heparin. He had elevated troponins, but they felt it was secondary to PE, so he was not transferred to [facility]. The following day, though, he developed symptomatic bradycardia. His DVT study showed a right femoral and popliteal DVT on the right. He developed third-degree heart block with a right bundle. He was emergently taken for transvenous pacing per Dr. Lama, around noon or a little bit before, and then he was transferred urgently to [facility] for permanent pacemaker placement. Full workup and discharge medications per them. He was basically transferred the same day of discharge. DISCHARGE CONDITION: Guarded. cc: Husam Bills MD Primary Care Physician
== END 2019-06-27 18:25 | disposition short-term general hospital (02) | DRG 176 ==
LOC: SUPCPDRO → ED 14:05 → SUATTDRO 06-27 01:40 → ICU 06-27 01:40
PROVIDERS: ATTEND Internal Medicine